=== PATIENT | male | born 1970 | race Caucasian/White ===

== ENCOUNTER 2025-02-25 13:23 | Emergency (ER) | payer OTHER ==
[~2025-02-25] VITALS: Ht 185.4 cm; Wt 99.8 kg
[~2025-02-25 13:23] MED LIST: DIPH50CA37 PO; TRIA40VI IJ
[2025-02-25 13:48] VITALS: TEMP 97.7
[2025-02-25] MEDS ORDERED: KETOROLAC TROMETHAMINE 15 MG/ML VIAL ONE (14:03)
[2025-02-25] MEDS ORDERED: LIDOCAINE 5% (PATCH) 1 EA PATCH TP ONE (14:03)
[2025-02-25] MEDS: KETOROLAC TROMETHAMINE 15 MG/ML VIAL IM ONE (14:10)
[2025-02-25] MEDS: LIDOCAINE 5% (PATCH) 1 EA PATCH TP SCH (14:10)
[2025-02-25] MEDS ORDERED: IBUP-1490 PO (15:02)
[2025-02-25] MEDS ORDERED: LIDO30AD10 TP (15:02)
[2025-02-25] MEDS ORDERED: METH-649 PO (15:02)
[2025-02-25 15:06] VITALS: BP 121/74; O2SAT 98
== END 2025-02-25 15:07 | disposition home or self-care (01) ==
LOC: ER 13:23
DX: M54.50 Low back pain, unspecified (principal); M54.2 Cervicalgia; I10 Essential (primary) hypertension; F31.9 Bipolar disorder, unspecified; E11.9 Type 2 diabetes mellitus without complications; Z88.0 Allergy status to penicillin; V89.0XXA Person injured in unspecified motor-vehicle accident, nontraffic, initial encounter; Y93.89 Activity, other specified; Y92.415 Exit ramp or entrance ramp of street or highway as the place of occurrence of the external cause; Y99.9 Unspecified external cause status
CPT/HCPCS: 99284; 96372; 72050; 72110; J1885